=== PATIENT | male | born 1970 | race Caucasian/White ===

== ENCOUNTER 2016-10-21 05:00 | Emergency (ER) ==
[2016-10-21 05:15] VITALS: BP 149/96; TEMP 97.6; BMI 47.2
[2016-10-21 05:22] LABS: BASOPHILS # (AUTO) 0.1 K/uL (0-0.2); EOSINOPHILS # (AUTO) 0.3 K/ul (0.0-0.7); HEMATOCRIT 40.8 % (42.0-52.0); HEMOGLOBIN 14.1 g/dl (14.0-18.0); IMMATURE GRANULOCYTE % (AUTO) 0.4 % (0.0-5.0); LYMPHOCYTES # (AUTO) 3.4 K/uL (0.60-3.4); LYMPHOCYTES % (AUTO) 43.4 (10.0-50.0); MEAN CORPUSCULAR HEMOGLOBIN 28.7 pg (27.0-31.0); MEAN CORPUSCULAR HGB CONC 34.6 (31.8-35.4); MEAN CORPUSCULAR VOLUME 82.9 fl (80.0-94.0); MONOCYTES # (AUTO) 0.7 K/uL (0.4-2.0); MONOCYTES % (AUTO) 8.8 (0-10); NEUTROPHILS # (AUTO) 3.3 K/ul (2.0-6.9); NEUTROPHILS % (AUTO) 42.4; PLATELET COUNT 224 10^3/uL (140-440); RED BLOOD COUNT 4.92 10^6/ul (4.70-6.10); WHITE BLOOD COUNT 7.72 K/ul (4.2-10.2)
[2016-10-21] MEDS ORDERED: DILAUDID 1 MG/ML SYRINGE IVP STA ×2 (05:50→06:50)
[2016-10-21] MEDS ORDERED: ZOFRAN 4 MG/2 ML IVP STA (05:50)
[2016-10-21 05:56] LABS: ALBUMIN 3.8 g/dL (3.4-5.0); ALBUMIN/GLOBULIN RATIO 1.46; ANION GAP 14.5; BILIRUBIN,TOTAL 0.4 mg/dL (0.00-1.20); BUN/CREATININE RATIO 9.21; CALCIUM 8.9 mg/dL (8.2-10.2); CREATININE 0.76 mg/dL (0.60-1.10); POTASSIUM 3.5 mmol/L (3.5-5.1); TOTAL PROTEIN 6.4 g/dL (6.4-8.2); TROPONIN I 0.027 ng/ml (0.0000-0.4000)
[2016-10-21 06:19] LABS: ABG BASE EXCESS 1 (-2.0-2.0); ABG HCO3 25.8 (22.0-26.0); ABG PCO2 39.7 mmHg (35-45); ABG PH 7.421 (7.35-7.45); ABG TCO2 27 (22.0-28.0)
--- NOTE | 2016-10-21 06:22 | CT ---
EXAM: CT brain without contrast HISTORY: Headache TECHNIQUE: CT of the brain without intravenous contrast FINDINGS: There is no acute hemorrhage midline shift or mass effect. No hydrocephalus or abnormal extra-axial fluid collection. No significant parenchymal attenuation abnormality. The bony cranium appears normal. The visualized paranasal sinuses are clear. Soft tissues without significant abnorm ality. IMPRESSION: 1. CT of the brain within normal limits.
--- NOTE | 2016-10-21 06:30 | CT ---
Exam: CT of the chest without contrast History: Chest pain Technique: [address] of the chest without intravascular contrast FINDINGS: The lung windows show no pulmonary parenchymal abnormalities. The heart, great vessels a nd pericardium appear normal. No abnormalities of the chest wall soft tissues or bony thorax. No a cute findings of the upper abdomen. Bilateral multiple nonobstructing nephrolithiasis incidentally noted. Prior cholecystectomy. Impression: 1. No significant abnormality of the chest 2. Incidental bilateral multiple nonobstructing nephrolithiasis
[2016-10-21] MEDS ORDERED: TORADOL IVP STA (06:50)
--- NOTE | 2016-10-21 06:54 | ED.PDOC ---
General Stated Complaint: serge got headache--its like lightning bolt.. Time Seen by Physician: 05:05 Mode of Arrival: Walk-In Information Source: Patient Exam Limitations: No limitations Nursing and Triage Documentation Reviewed and Agree: Yes <MAGUE XIE - Last Filed: 10/21/16 07:06> <CAPO PENA - Last Filed: 10/21/16 10:55> ED Provider: Dr. CAPO PENA (RAMONMAGUE NDIAYE) (CAPO PENA) Chief Complaint: Chest Wall Injury/Pain Primary Care Provider: SRIRAM TONG (MAGUE XIE) (CAPO PENA) Neurological Complaint Exam - Headache Complaint/Exam Onset: Gradual Duration: several hours Symptoms Are: Still present Timing: Constant Episodes Lasting: Hours Worst Headache Ever: No Initial Severity: Mild Current Severity: Moderate Location: Left Character: Reports: Dull, Throbbing, Migraine Aggravating: Reports: Bright lights Alleviating: Reports: None Associated Signs and Symptoms: Reports: Nausea, Neck pain. Denies: Dizziness, Seizure, Vomiting, Sinus pressure, Fever, Neck stiffness, Decreased LOC, Visual changes Related History: Reports: Similar episode Related Surgical History: Reports: None SAH Risk Factors: Reports: None Meningitis Risk Factors: Reports: None SDH Risk Factors: Reports: Male Temporal Arteritis Risk Factors: Reports: Normal Head CT Within Last 12 Months: No Fundoscopic Exam: Present: Normal Findings Papilledema Present: No Temporal Artery Tenderness: Present: None Sinus Tenderness: Present: None TMJ Tenderness: Present: None Meningeal Signs Positive: No Pain on Passive Flexion-Positive Kernig's: No Focal Weakness: Present: None Focal Sensory Loss: Present: None Gait: Normal Nystagmus Present: No Gag Reflex Present: Yes [id number]: Normal Findings Romberg Test Positive: No Babinski Sign: Negative Right, Negative Left Heel to Toe Normal: Yes Differential Diagnoses: Carbon Monoxide Poisoning, Migraine, Tension Headache <MAGUE XIE - Last Filed: 10/21/16 07:06> Review of Systems - Review Of Systems Constitutional: Reports: No symptoms Eyes: Reports: No symptoms Ears, Nose, Mouth, Throat: Reports: No symptoms Respiratory: Reports: No symptoms Cardiac: Reports: No symptoms GI: Reports: No symptoms : Reports: No symptoms Musculoskeletal: Reports: No symptoms Skin: Reports: No symptoms Neurological: Reports: Headache Endocrine: Reports: No symptoms Hematologic/Lymphatic: Reports: No symptoms All Other Systems: Reviewed and Negative <MAGUE XIE Filed: 10/21/16 07:06> Past Medical History - Past Medical History Endocrine: Reports: Unknown Cardiovascular: Reports: Unknown Respiratory: Reports: Unknown Hematological: Reports: Unknown Gastrointestinal: Reports: Unknown Genitourinary: Reports: Unknown Neuro/Psych: Reports: Migraine Musculoskeletal: Reports: Unknown Cancer: Reports: Unknown - Surgical History General Surgical History: Reports: Unknown - Family History Family History: Reports: Unknown - Social History Smoking Status: Dips snuff Hx Substance Use: No Alcohol Screening: None Lives: With family - Immunizations Tetanus Shot up to Date: Yes <MAGUE XIE Filed: 10/21/16 07:06> Physical Exam - Physical Exam Appearance: Well-appearing Pain Distress: Moderate Eyes: MOHAN, EOMI, Conjunctiva clear ENT: Ears normal Neck: Supple Respiratory: Airway patent, Breath sounds clear, Breath sounds equal, Respirations nonlabored Cardiovascular: RRR, Pulses normal, No rub, No murmur GI/: Soft, Nontender, No masses, Bowel sounds normal, No Organomegaly Musculoskeletal: Normal strength Skin: Warm, Dry, Normal color Neurological: Sensation intact, Motor intact, Reflexes intact, Cranial nerves intact, Alert, Oriented Psychiatric: Affect appropriate, Mood appropriate <MAGUE XIE Filed: 10/21/16 07:06> Interpretation - Radiology Interpretation Radiology Interpretation By: Radiologist Radiology Results: Negative Exam Interpreted: CT Scan - EKG Interpretation Time of EKG #1: 05:20 Rate: Normal Rhythm: Sinus Ectopy: None [place]: NL ST Segment: Normal Interpretation: nsr <MAGUE XIE Last Filed: 10/21/16 07:06> Re-Evaluation - Re-Evaluation Time of Re-Evaluation: 07:06 Status: Improved Vital Signs Stable: Yes Pain Level: 3 Appearance: NAD Lungs: Clear Skin: Warm and Dry Neuro: Alert and Oriented X3 CV: RRR <MAGUE XIE Last Filed: 10/21/16 07:06> Physician Notification - Case Discussed Physician Notified: dr pena Time of Notification: 07:00 <MAGUE XIE Last Filed: 10/21/16 07:06> Critical Care Note - Critical Care Note Total Time (mins): 15 <MAGUE XIE - Last Filed: 10/21/16 07:06> Course - Course Hematology/Chemistry: 10/21/16 05:20 10/21/16 05:20 <MAGUE XIE - Last Filed: 10/21/16 07:06> - Course Hematology/Chemistry: 10/21/16 05:20 10/21/16 05:20 <CAPO PENA - Last Filed: 10/21/16 10:55> - Course Orders, Labs, Meds: Lab Review 10/21/16 10/21/16 10/21/16 05:02 05:20 05:49 WBC 7.72 RBC 4.92 Hgb 14.1 Hct 40.8 L MCV 82.9 MCH 28.7 MCHC 34.6 RDW Coeff of Rosalia 12.4 Plt Count 224 Immature Gran % (Auto) 0.4 Neut % (Auto) 42.4 Lymph % (Auto) 43.4 Esmeralda % (Auto) 8.8 Eos % (Auto) 4.0 Baso % (Auto) 1.0 Immature Gran # (Auto) 0.0 Neut # 3.3 Lymph # 3.4 Esmeralda # 0.7 Eos # 0.3 Baso # 0.1 ESR 10 D-Dimer 0.37 Puncture Site Rr O2 Saturation 93.0 L ABG pH 7.421 ABG pCO2 39.7 ABG pO2 67.0 L ABG HCO3 25.8 ABG Total CO2 27 ABG Base Excess 1 Faraz Test + FiO2 % 21.0 Sodium 139 Potassium 3.5 Chloride 104 Carbon Dioxide 24 Anion Gap 14.5 BUN 7 Creatinine 0.76 Estimated GFR (MDRD) 111.00 BUN/Creatinine Ratio 9.21 Glucose 87 Calcium 8.9 Total Bilirubin 0.40 AST 21 ALT 36 Alkaline Phosphatase 55 Total Creatine Kinase 321 CK-MB (CK-2) 3.9 H CK-MB (CK-2) % 1.75432 Troponin I 0.0270 Total Protein 6.4 Albumin 3.8 Globulin 2.6 Albumin/Globulin Ratio 1.46 10/21/16 09:05 WBC RBC Hgb Hct MCV MCH MCHC RDW Coeff of Rosalia Plt Count Immature Gran % (Auto) Neut % (Auto) Lymph % (Auto) Esmeralda % (Auto) Eos % (Auto) Baso % (Auto) Immature Gran # (Auto) Neut # Lymph # Esmeralda # Eos # Baso # ESR D-Dimer Puncture Site O2 Saturation ABG pH ABG pCO2 ABG pO2 ABG HCO3 ABG Total CO2 ABG Base Excess Faraz Test FiO2 % Sodium Potassium Chloride Carbon Dioxide Anion Gap BUN Creatinine Estimated GFR (MDRD) BUN/Creatinine Ratio Glucose Calcium Total Bilirubin AST ALT Alkaline Phosphatase Total Creatine Kinase 254 CK-MB (CK-2) 3.2 CK-MB (CK-2) % 1.45461 Troponin I 0.1230 Total Protein Albumin Globulin Albumin/Globulin Ratio Orders Category Date Time Status ABG DRAW REQUEST Stat CARDIO 10/21/16 05:49 Completed EKG-(ED ONLY) Stat CARDIO 10/21/16 05:10 Completed EKG-(ED ONLY) Timed CARDIO 10/21/16 09:00 Completed IV [ED IV/MEDIPORT/POWERPORT] .ONCE EMERGENCY 10/21/16 05:49 Active ARTERIAL BLOOD GAS [ABG] Stat LAB 10/21/16 05:49 Completed CBC W/ AUTO DIFF Stat LAB 10/21/16 05:20 Completed CK [CREATINE KINASE] Timed LAB 10/21/16 09:05 Completed COMPREHENSIVE METABOLIC PANEL Stat LAB 10/21/16 05:20 Completed CREATINE KINASE Stat LAB 10/21/16 05:20 Completed D-DIMER Stat LAB 10/21/16 05:02 Completed ESR Stat LAB 10/21/16 05:02 Completed TROPONIN I Stat LAB 10/21/16 05:20 Completed TROPONIN I Timed LAB 10/21/16 09:05 Completed 0.9 % Sodium Chloride [Saline Flush] MEDS 10/21/16 05:49 Active 1 syr IVF PRN PRN Hydromorphone HCl [Dilaudid 1 mg/ml Syringe] MEDS 10/21/16 05:50 Discontinued 1 mg IVP ONCE STA Hydromorphone HCl [Dilaudid 1 mg/ml Syringe] MEDS 10/21/16 06:50 Discontinued 1 mg IVP ONCE STA Ketorolac Tromethamine [Toradol] MEDS 10/21/16 06:50 Discontinued 30 mg IVP ONCE STA Ondansetron HCl/Pf [Zofran 4 mg/2 ml] MEDS 10/21/16 05:50 Discontinued 4 mg IVP ONCE STA CT CHEST W/O CONTRAST Stat RADS 10/21/16 05:[address] HEAD W/O CONTRAST Stat RADS 10/21/16 05:49 Completed Medications Generic Name Dose Route Start Last Admin Trade Name Freq PRN Reason Stop Dose Admin Sodium Chloride 1 syr 10/21/16 05:49 Saline Flush IVF PRN PRN To flush IV Discontinued Medications Generic Name Dose Route Start Last Admin Trade Name Freq PRN Reason Stop Dose Admin Hydromorphone HCl 1 mg 10/21/16 05:50 10/21/16 05:56 Dilaudid 1 Mg/Ml Syringe IVP 10/21/16 05:51 1 mg ONCE STA Administration Hydromorphone HCl 1 mg 10/21/16 06:50 10/21/16 07:05 Dilaudid 1 Mg/Ml Syringe IVP 10/21/16 06:51 1 mg ONCE STA Administration Ketorolac Tromethamine 30 mg 10/21/16 06:50 10/21/16 07:05 Toradol IVP 10/21/16 06:51 30 mg ONCE STA Administration Ondansetron HCl 4 mg 10/21/16 05:50 10/21/16 05:56 Zofran 4 Mg/2 Ml IVP 10/21/16 05:51 4 mg ONCE STA Administration (MAGUE XIE) (CAPO PENA) Vital Signs: Temp Pulse Resp BP Pulse Ox 10/21/16 05:01 97.6 F 84 20 149/96 H 97 (MAGUE XIE) (CAPO PENA) Departure - Departure Time of Disposition: 07:07 Pt referred to PMD for follow-up: Yes Disposition Discussed With: Patient <MAGUE XIE - Last Filed: 10/21/16 07:06> - Departure Pt referred to PMD for follow-up: Yes <CAPO PENA - Last Filed: 10/21/16 10:55> - Departure Disposition: HOME SELF-CARE Discharge Problem: Chest wall pain Headache Qualifiers: Headache type: unspecified Headache chronicity pattern: chronic headache Intractability: not intractable Qualifier Code: (R51) Headache Instructions: Migraine Headache (ED), Chest Wall Pain (ED) Condition: Good Additional Instructions: Take home Ibuprofen as needed for pain Follow up with PCP in 2 day Allergies/Adverse Reactions: Allergies No Known Allergies Allergy (Verified 10/21/16 05:15) Home Medications: Ambulatory Orders Aspirin [Aspirin EC] 81 mg PO DAILYWM 09/21/16 Lisinopril [Zestril] 40 mg PO DAILY 09/21/16 Sucralfate [Carafate] 1 gm PO ACHS PRN 09/21/16
[2016-10-21 07:06] LABS: CREATINE KINASE MB 3.9 ng/ml (0.0-3.6)
[2016-10-21 07:08] LABS: ERYTHROCYTE SEDIMENTATION RATE 10 mm/hr (0-15); ESR INTERNAL QC INTERNAL QC VALID
[2016-10-21 09:54] LABS: TROPONIN I 0.123 ng/ml (0.0000-0.4000)
[2016-10-21 09:55] LABS: CREATINE KINASE MB 3.2 ng/ml (0.0-3.6)
== END 2016-10-21 11:16 | disposition home or self-care (01) ==
LOC: ED 05:00
DX: R07.89 Other chest pain (principal); R51 Headache; R11.0 Nausea; M54.2 Cervicalgia
CPT/HCPCS: 36415; 80053; 82550; 82553; 82803; 84484; 85025; 85379; 85651; 93005; 93010; 96374; 96375; 96376; 99283

== ENCOUNTER 2017-04-30 20:24 | Emergency (ER) ==
[2017-04-30 20:28] VITALS: BMI 47.2
[2017-04-30 20:35] VITALS: BP 150/83; TEMP 99
[2017-04-30] MEDS ORDERED: ZOFRAN 4 MG/2 ML IM STA (20:37)
[2017-04-30] MEDS ORDERED: DILAUDID 2 MG/ML SYRINGE IM STA (20:37)
[2017-04-30 20:51] LABS: BASOPHILS # (AUTO) 0.1 K/uL (0-0.2); BASOPHILS % (AUTO) 1.3 % (0.0-3.0); EOSINOPHILS # (AUTO) 0.2 K/ul (0.0-0.7); EOSINOPHILS % (AUTO) 2.7 % (0.0-7.0); HEMATOCRIT 39.7 % (42.0-52.0); HEMOGLOBIN 13.9 g/dl (14.0-18.0); IMMATURE GRANULOCYTE % (AUTO) 0.5 % (0.0-5.0); LYMPHOCYTES # (AUTO) 3.4 K/uL (0.60-3.4); LYMPHOCYTES % (AUTO) 38.8 (10.0-50.0); MEAN CORPUSCULAR HEMOGLOBIN 29.3 pg (27.0-31.0); MEAN CORPUSCULAR VOLUME 83.8 fl (80.0-94.0); MONOCYTES # (AUTO) 0.6 K/uL (0.4-2.0); MONOCYTES % (AUTO) 6.8 (0-10); NEUTROPHILS # (AUTO) 4.3 K/ul (2.0-6.9); NEUTROPHILS % (AUTO) 49.9; PLATELET COUNT 240 10^3/uL (140-440); RED BLOOD COUNT 4.74 10^6/ul (4.70-6.10); WHITE BLOOD COUNT 8.66 K/ul (4.2-10.2)
[2017-04-30 21:12] LABS: ALBUMIN 3.9 g/dL (3.4-5.0); ALBUMIN/GLOBULIN RATIO 1.44; ANION GAP 12.3; BILIRUBIN,TOTAL 0.47 mg/dL (0.00-1.20); BUN/CREATININE RATIO 6.25; CALCIUM 9.7 mg/dL (8.2-10.2); CREATININE 0.96 mg/dL (0.60-1.10); POTASSIUM 4.3 mmol/L (3.5-5.1); TOTAL PROTEIN 6.6 g/dL (6.4-8.2)
--- NOTE | 2017-04-30 21:17 | CT ---
EXAM: CT abdomen and pelvis without contrast HISTORY: Right groin pain TECHNIQUE: Multi-slice transaxial helical CT. Coronal and sagittal reformatons were performed. COMPARISON: 09/21/2016 FINDINGS: The heart is normal in size. The lung bases are clear. Evaluation of the solid organs is limited without IV contrast. The gallbladder has been removed. Th e spleen measures up to 14.5 cm in craniocaudal dimension. Multiple bilateral nonobstructing renal calculi is seen. A 4 mm obstructing calculus is present within the proximal right ureter. This res ults in mild right-sided hydronephrosis/hydroureter. No evidence of left-sided hydronephrosis is se en. There is no intrahepatic biliary ductal dilation. The pancreas and the bilateral adrenal gland s appear grossly unremarkable. The bowel is not dilated. The urinary bladder appears unremarkable. The sigmoid colon is redundant. The appendix is normal in size. No evidence of free fluid within the abdomen pelvis is seen. The re is no retroperitoneal adenopathy. Mild osteitis pubis is present. Right L5-S1 assimilation join t is present. IMPRESSION: 1. 4 mm obstructing calculus in the proximal right ureter results in mild right-sided hydronephrosi s/hydroureter per 2. Multiple bilateral nonobstructing renal calculi. 3. Prior cholecystectomy. 4. Right L5-S1 assimilation joint. This can be a source for chronic low back pain. 5. Mild splenomegaly.
--- NOTE | 2017-04-30 21:19 | ED.PDOC ---
General ED Provider: Dr. MARGO BRADLEY Chief Complaint: Abdominal Pain Stated Complaint: Been hurting in the rt side of the belly and groin, has h/o kidney stones. was hurting for 3-4 days got worse today Time Seen by Physician: 21:16 Mode of Arrival: Walk-In Information Source: Patient Primary Care Provider: SRIRAM TONG Nursing and Triage Documentation Reviewed and Agree: Yes GI Complaint Exam - Abdominal Pain Complaint/Exam Onset: Gradual Symptoms Are: Still present Timing: Constant Initial Severity: Severe Current Severity: Severe Location of Pain: RLQ Radiates To: Reports: Back, Flank Character: Reports: Dull, Aching Aggravating: Reports: Movement Alleviating: Reports: None Associated Signs and Symptoms: Denies: Diaphoresis, Fever, Cough, Chest pain, Dizziness, Back pain, Constipation, Blood in stool, Dysuria, Urinary frequency, Decreased urine output, Decreased appetite, Discharge, Nausea, Vomiting, Diarrhea, Decreased activity Related History: Reports: Similar episode AAA Risk Factors: Reports: None Cardiac Risk Factors: Reports: None Testicular Torsion Risk Factors: Reports: None Surgical Obstruction Risk Factors: Reports: None Related Surgical History: Reports: None Abdominal Findings: Absent: Pulsatile mass, Abdominal distention, Unequal femoral pulses Differential Diagnoses: Renal Colic Review of Systems - Review Of Systems Constitutional: Reports: No symptoms (+) Eyes: Reports: No symptoms Ears, Nose, Mouth, Throat: Reports: No symptoms Respiratory: Reports: No symptoms Cardiac: Reports: No symptoms GI: Reports: Abdominal pain : Reports: No symptoms Musculoskeletal: Reports: No symptoms Skin: Reports: No symptoms Neurological: Reports: No symptoms Endocrine: Reports: No symptoms Hematologic/Lymphatic: Reports: No symptoms All Other Systems: Reviewed and Negative Past Medical History - Past Medical History Previously Healthy: Yes Endocrine: Reports: Unknown Cardiovascular: Reports: Unknown Respiratory: Reports: Unknown Hematological: Reports: Unknown Gastrointestinal: Reports: Unknown Genitourinary: Reports: Unknown Neuro/Psych: Reports: Migraine Musculoskeletal: Reports: Unknown Cancer: Reports: Unknown - Surgical History General Surgical History: Reports: Unknown - Family History Family History: Reports: Unknown - Social History Smoking Status: Dips snuff Hx Substance Use: No Alcohol Screening: None - Immunizations Tetanus Shot up to Date: No Physical Exam - Physical Exam Appearance: Ill-appearing, Obese Pain Distress: Severe Eyes: MOHAN, EOMI, Conjunctiva clear ENT: Ears normal, Nose normal, Oropharynx normal Respiratory: Airway patent, Breath sounds clear, Breath sounds equal, Respirations nonlabored Cardiovascular: RRR, Pulses normal, No rub, No murmur GI/: Soft, Tender Musculoskeletal: Normal strength, ROM intact, No edema, No calf tenderness Skin: Warm, Dry, Normal color Neurological: Sensation intact, Motor intact, Reflexes intact, Cranial nerves intact, Alert, Oriented Psychiatric: Affect appropriate, Mood appropriate Interpretation - Radiology Interpretation Radiology Interpretation By: Radiologist Radiology Results: Positive Exam Interpreted: CT Scan Critical Care Note - Critical Care Note Total Time (mins): 0 Course - Course Hematology/Chemistry: 04/30/17 20:40 04/30/17 20:40 Orders, Labs, Meds: Lab Review 04/30/17 20:40 WBC 8.66 RBC 4.74 Hgb 13.9 L Hct 39.7 L MCV 83.8 MCH 29.3 MCHC 35.0 RDW Coeff of Rosalia 12.6 Plt Count 240 Immature Gran % (Auto) 0.5 Neut % (Auto) 49.9 Lymph % (Auto) 38.8 [place] % (Auto) 6.8 Eos % (Auto) 2.7 Baso % (Auto) 1.3 Immature Gran # (Auto) 0.0 Neut # 4.3 Lymph # 3.4 [place] # 0.6 Eos # 0.2 Baso # 0.1 Sodium 140 Potassium 4.3 Chloride 102 Carbon Dioxide 30 Anion Gap 12.3 BUN 6 L Creatinine 0.96 Estimated GFR (MDRD) 85.00 BUN/Creatinine Ratio 6.25 Glucose 89 Calcium 9.7 Total Bilirubin 0.47 AST 30 ALT 60 Alkaline Phosphatase 48 L Total Protein 6.6 Albumin 3.9 Globulin 2.7 Albumin/Globulin Ratio 1.44 Amylase 36 Lipase 29 Orders Category Date Time Status AMYLASE Stat LAB 04/30/17 20:40 Completed CBC W/ AUTO DIFF Stat LAB 04/30/17 20:40 Completed COMPREHENSIVE METABOLIC PANEL Stat LAB 04/30/17 20:40 Completed LIPASE Stat LAB 04/30/17 20:40 Completed URINALYSIS C & S IF INDICATED Stat LAB 04/30/17 20:37 Uncollected Hydromorphone HCl/Pf [Dilaudid 2 mg/ml Syringe] MEDS 04/30/17 20:37 Discontinued 2 mg IM ONCE STA Ketorolac Tromethamine [Toradol] MEDS 04/30/17 21:20 Stat 60 mg IM ONCE STA Ondansetron HCl/Pf [Zofran 4 mg/2 ml] MEDS 04/30/17 20:37 Discontinued 4 mg IM ONCE STA Tamsulosin HCl [Flomax] MEDS 04/30/17 21:20 Stat 0.4 mg PO ONCE STA CT ABDOMEN/PELVIS WO CONTRAST Stat RADS 04/30/17 20:37 Completed Medications Discontinued Medications Generic Name Dose Route Start Last Admin Trade Name Bianca PRN Reason Stop Dose Admin Hydromorphone HCl 2 mg 04/30/17 20:37 04/30/17 20:50 Dilaudid 2 Mg/Ml Syringe IM 04/30/17 20:38 2 mg ONCE STA Administration Ondansetron HCl 4 mg 04/30/17 20:37 04/30/17 20:51 Zofran 4 Mg/2 Ml IM 04/30/17 20:38 4 mg ONCE STA Administration Vital Signs: Temp Pulse Resp BP Pulse Ox 04/30/17 20:28 99 F 85 18 150/83 H 98 Departure - Departure Time of Disposition: 21:22 Disposition: HOME SELF-CARE Discharge Problem: Renal colic on right side Instructions: Renal Colic (ED) Condition: Good Pt referred to PMD for follow-up: Yes Additional Instructions: INCREASE HYDRATION NEEDS F/U WITH pmd in 2 days Prescriptions: Hydrocodone Bit/Acetaminophen [[place] 7.5-325] 1 each PO Q8H #14 tablet Tamsulosin HCl [Flomax] 0.4 mg PO DAILY #10 cap.er.24h Allergies/Adverse Reactions: Allergies morphine Adverse Reaction (Verified 04/30/17 20:33) MIGRAINE Home Medications: Ambulatory Orders Aspirin [Aspirin EC] 81 mg PO DAILYWM 09/21/16 Lisinopril [Zestril] 40 mg PO DAILY 09/21/16 Hydrocodone Bit/Acetaminophen [[place] 7.5-325] 1 each PO Q8H #14 tablet 04/30/17 Tamsulosin HCl [Flomax] 0.4 mg PO DAILY #10 cap.er.24h 04/30/17 Disposition Discussed With: Patient
[2017-04-30] MEDS ORDERED: TORADOL IM STA (21:20)
[2017-04-30] MEDS ORDERED: FLOMAX PO STA (21:20)
== END 2017-04-30 22:09 | disposition home or self-care (01) ==
LOC: ED 20:24
DX: N23 Unspecified renal colic (principal); Z87.442 Personal history of urinary calculi
CPT/HCPCS: 36415; 80053; 82150; 83690; 85025; 96372; 99283